=== PATIENT | female | born 1945 | race Caucasian/White ===

== ENCOUNTER → 2019-02-22 | Outpatient (CLI) | payer MEDICARE | END | disposition home or self-care (01) | LOC: CFH 09:41 | PROVIDERS: ATTEND Family Medicine | DX: J43.8 Other emphysema (principal) | CPT/HCPCS: 71046 ==

== ENCOUNTER → 2020-09-08 | Outpatient (CLI) | payer MEDICARE | END | disposition home or self-care (01) | LOC: CARD 08:32 | PROVIDERS: ATTEND Registered Nurse | DX: G24.01 Drug induced subacute dyskinesia (principal); G62.9 Polyneuropathy, unspecified; M62.81 Muscle weakness (generalized) | CPT/HCPCS: 95886; 95911 ==